=== PATIENT | female | born 1935 | race Two or more races ===

== ENCOUNTER → 2018-02-19 | Outpatient (CLI) | payer MEDICARE, OTHER ==
[2015-05-06 11:43] VITALS: BP 135/73
[~2018-02-19] MED LIST: ALPR0.5T6 PO; ASPI-482 PO; BIOT25006 PO; CHOL200074 PO; FLUO20CA8 PO; FURO20TA3 PO; INSU100I27 SQ; INSU100V5 IJ; METO25TA4 PO; NITR0.4T22 SL; NPH,100V SQ; TEMA30CA PO
--- NOTE | 2018-02-19 15:28 | KCIC ---
EXAM: Chest, 2 views. HISTORY: Pneumonia. COMPARISON: 05/04/2015 FINDINGS: 2 views of the chest are obtained. There is increased blunting of the left costophrenic angle due to left pleural thickening or a small pleural effusion. There is coarse diffuse increased interstitial opacity within the left lung which is also increased compared to the prior study. There is evidence of prior CABG. There is no pneumothorax. IMPRESSION: Increased small left pleural effusion or left pleural thickening and coarse diffuse increased left lung interstitial opacity due to interstitial infiltrate or chronic interstitial changes. Electronically signed by: Naina Patton MD (02/19/2018 3:23 PM) [place] [id number]
== END | disposition home or self-care (01) ==
LOC: KCIC 14:35
PROVIDERS: ATTEND Nurse Practitioner Family
DX: J18.9 Pneumonia, unspecified organism (principal); R91.8 Other nonspecific abnormal finding of lung field; Z85.3 Personal history of malignant neoplasm of breast
CPT/HCPCS: 71046

== ENCOUNTER 2018-06-30 10:54 | Emergency (ER) | payer MEDICARE, OTHER ==
[~2018-06-30] VITALS: Ht 157.5 cm; Wt 81.2 kg
[2018-06-30] MEDS ORDERED: IV NORMAL SALINE 500ML BAG 500 ML IV ONE (12:00)
[2018-06-30 12:05] LABS: AMPHETAMINE/METHAMPHETAMINE NEG (NEG); BARBITURATES NEG (NEG); BENZODIAZEPINES NEG (NEG); CANNABINOIDS NEG (NEG); COCAINE NEG (NEG); METHADONE NEG (NEG); OPIATES POS (NEG); PHENCYCLIDINE NEG (NEG)
[2018-06-30 12:12] LABS: BASO % 0 % (0-3); EOS # 0.1 x10^3/uL (0.0-0.7); EOS % 2 % (0-3); HEMATOCRIT 35.3 % (36.0-47.0); HEMOGLOBIN 11.7 g/dL (12.0-15.5); LYMPH # 2.5 x10^3/uL (1.0-4.8); LYMPH % 43 % (24-48); MEAN CORPUSCULAR HEMOGLOBIN 31 pg (25-35); MEAN CORPUSCULAR HGB CONC 33 g/dL (31-37); MEAN CORPUSCULAR VOLUME 93 fL (79-100); MONO # 0.4 x10^3/uL (0.0-1.1); MONO % 7 % (0-9); NEUT # 2.7 x10^3uL (1.8-7.7); NEUT % 48 % (31-73); PLATELET COUNT 191 x10^3/uL (140-400); RED BLOOD COUNT 3.82 x10^6/uL (3.50-5.40); RED CELL DISTRIBUTION WIDTH 13.3 % (11.5-14.5); WHITE BLOOD COUNT 5.7 x10^3/uL (4.0-11.0)
[2018-06-30 12:13] LABS: BILIRUBIN,URINE NEGATIVE (NEG); CLARITY,URINE CLEAR; COLOR,URINE YELLOW; NITRITE,URINE NEGATIVE (NEG); PROTEIN,URINE NEGATIVE (NEG-TRACE); UROBILINOGEN,URINE 0.2 mg/dL (0.2 mg/dL)
[2018-06-30] MEDS ORDERED: FAMOTIDINE 20 MG/2 ML VIAL IVP ONE (12:15)
[2018-06-30] MEDS ORDERED: ONDANSETRON PF 4 MG/2 ML VIAL. IV ONE (12:15)
[2018-06-30 12:22] LABS: CALCIUM 8.7 mg/dL (8.5-10.1); CREATININE 1.5 mg/dL (0.6-1.0); GFR 33.2; POTASSIUM 4.5 mmol/L (3.5-5.1)
[2018-06-30 12:24] LABS: BACTERIA,URINE MANY /HPF (0-FEW); HYALINE CASTS, URINE MODERATE /HPF; RBC,URINE 0 /HPF (0-2); SQUAMOUS EPITHELIAL CELL,UR FEW /LPF
[2018-06-30 12:29] LABS: ALBUMIN 3.2 g/dL (3.4-5.0); TOTAL BILIRUBIN 0.3 mg/dL (0.2-1.0); TOTAL PROTEIN 6.5 g/dL (6.4-8.2)
--- NOTE | 2018-06-30 13:20 | RAD ---
CT scan of the abdomen and pelvis without contrast 06/30/2018 CLINICAL HISTORY: Left upper quadrant abdominal pain. TECHNIQUE: Unenhanced, contiguous, 5 mm axial sections were obtained to the abdomen and pelvis. One or more of the following individualized dose reduction techniques were utilized for this study: 1. Automated exposure control. 2. Adjustment of the mA and/or kV according to patient size. 3. Use of iterative reconstruction technique. FINDINGS: Comparison study is dated 05/01/2015. Images through the lung bases demonstrate minimal dependent subsegmental atelectasis bilaterally. There is mild cardiomegaly. Pleural thickening is seen surrounding the left lower lobe. Scattered left pleural calcifications are noted. Small calcified granulomas are seen involving the right lower lobe. The liver, spleen, pancreas, adrenal glands and left kidney are within normal limits. A 2 cm oval-shaped low-attenuation structure is seen involving the medial aspect of the right kidney. This likely represents a cyst. Atherosclerotic calcification of the abdominal aorta and its branches is noted. The abdominal aorta tapers normally. Surgical clips are seen within the gallbladder fossa consistent with a cholecystectomy. No free fluid or free air is seen within the abdomen. Air and stool os seen throughout the colon. There is no evidence of bowel obstruction. Images through the pelvis demonstrate the urinary bladder distended with urine. Calcifications are seen within the pelvis consistent with phleboliths. No free fluid is seen. The patient appears to be post hysterectomy. No adnexal mass is seen. No free fluid is noted. Degenerative changes are seen involving the lower thoracic and throughout the lumbar spine and both hips. IMPRESSION: No acute abnormality is seen. Electronically signed by: Andrew Martin MD (06/30/2018 1:17 PM) [facility]
[2018-06-30] MEDS ORDERED: fentaNYL PF VIAL 100 MCG/2 ML VIAL IV ONE (14:45)
--- NOTE | 2018-06-30 14:50 | PHYS DOC ---
Past Medical History Past Medical History: Diabetes-Type II, Other Past Surgical History: Appendectomy, Coronary Bypass Surgery, Gastric Bypass, Hysterectomy, Tonsillectomy, Other Additional Past Surgical Histo: BILAT KNEE, BILAT CARPAL TUNNEL Alcohol Use: None Drug Use: None Adult General Chief Complaint Chief Complaint: ABDOMINAL PAIN and suicidal ideation [facility] HPI Patient is a 82 year old female who brought in by EMS because of abdominal pain and suicidal ideation. Patient complaining of chronic upper abdominal pain for years that getting worse for the last 2 days as a constant sharp pain with radiation to her back without nausea and vomiting, diarrhea and constipation, urinary symptoms, fever and chills. Patient rated her pain 10 over 10 and states her pain is so bad that she wants to kill herself and tried to cut her wrist last week and plans to cut her wrist again. Patient lost her son 2 years ago with suicidal attempt and was very depressed since then and talked about suicid e, according to her neighbor's frequently. Patient denies homicidal ideation or hallucination. Patient is very anxious during to starting IV line on exam and taking history. Review of Systems Review of Systems Constitutional: Denies fever or chills [] Eyes: Denies change in visual acuity, redness, or eye pain [] HENT: Denies nasal congestion or sore throat [] Respiratory: Denies cough or shortness of breath [] Cardiovascular: No additional information not addressed in HPI [] GI: Reports abdominal pain, denies nausea, vomiting, bloody stools or diarrhea [] : Denies dysuria or hematuria [] Musculoskeletal: Denies back pain or joint pain [] Integument: Denies rash or skin lesions [] Neurologic: Denies headache, focal weakness or sensory changes [] Endocrine: Denies polyuria or polydipsia [] All other systems were reviewed and found to be within normal limits, except as documented in this note. Current Medications Current Medications Current Medications Medications (Trade) Dose Ordered Sig/Serenity Start Time Stop Time Status Last Admin Dose Admin Famotidine (Pepcid Vial) 20 mg 1X ONCE 06/30/18 12:15 06/30/18 12:16 DC 06/30/18 11:55 20 MG Fentanyl Citrate (Fentanyl 2ml Vial) 50 mcg 1X ONCE 06/30/18 14:45 06/30/18 14:46 DC 06/30/18 14:55 50 MCG Metoclopramide HCl (Reglan Vial) 10 mg 1X ONCE 06/30/18 15:15 06/30/18 15:16 DC 06/30/18 14:55 10 MG Ondansetron HCl (Zofran) 4 mg 1X ONCE 06/30/18 12:15 06/30/18 12:16 DC 06/30/18 11:55 4 MG Sodium Chloride 500 ml @ 500 mls/hr 1X ONCE 06/30/18 12:00 06/30/18 12:59 DC 06/30/18 11:56 500 MLS/HR Allergies Allergies Allergies Coded Allergies Type Severity Reaction Last Updated Verified Sulfa (Sulfonamide Antibiotics) Allergy Intermediate 04/27/15 Yes Physical Exam Physical Exam Constitutional: Well nourished, mild distress, non-toxic appearance. [] HENT: Normocephalic, atraumatic, oropharynx moist. [] Eyes: PERRLA, EOMI, conjunctiva normal, no discharge. [] Neck: Normal range of motion, no tenderness, supple, no stridor. [] Cardiovascular:Heart rate regular rhythm, no murmur [] Lungs & Thorax: Bilateral breath sounds clear to auscultation [] Abdomen: Bowel sounds normal, soft, voluntary guarding without tenderness, no masses, no pulsatile masses. [] Skin: Warm, dry, no erythema, no rash. [] Back: No tenderness, no CVA tenderness. [] Extremities: No tenderness, no cyanosis, no clubbing, ROM intact, no edema. [] Neurologic: Alert and oriented X 3, normal motor function, normal sensory function, no focal deficits noted. [] Psychologic: Affect anxious, judgement normal, suicidal ideation. Current Patient Data Vital Signs Vital Signs Date Time Temp Pulse Resp B/P (MAP) Pulse Ox O2 Delivery O2 Flow Rate FiO2 06/30/18 16:08 93 22 158/72 (100) 96 Room Air 06/30/18 11:00 97.4 97.4 Lab Values Laboratory Tests Test 06/30/18 11:42 06/30/18 11:58 Urine Collection Type U cath Urine Color Yellow Urine Clarity Clear Urine pH 5.0 Urine Specific Preston >=1.030 Urine Protein Negative mg/dL (NEG-TRACE) Urine Glucose (UA) Negative mg/dL (NEG) Urine Ketones (Stick) Negative mg/dL (NEG) Urine Blood Negative (NEG) Urine Nitrite Negative (NEG) Urine Bilirubin Negative (NEG) Urine Urobilinogen Dipstick 0.2 mg/dL (0.2 mg/dL) Urine Leukocyte Esterase Small (NEG) Urine RBC 0 /HPF (0-2) Urine WBC 1-4 /HPF (0-4) Urine Squamous Epithelial Cells Few /LPF Urine Bacteria Many /HPF (0-FEW) Urine Hyaline Casts Moderate /HPF Urine Mucus Slight /LPF Urine Opiates Screen Pos (NEG) Urine Methadone Screen Neg (NEG) Urine Barbiturates Neg (NEG) Urine Phencyclidine Screen Neg (NEG) Urine Amphetamine/Methamphetamine Neg (NEG) Urine Benzodiazepines Screen Neg (NEG) Urine Cocaine Screen Neg (NEG) Urine Cannabinoids Screen Neg (NEG) Urine Ethyl Alcohol Neg (NEG) White Blood Count 5.7 x10^3/uL (4.0-11.0) Red Blood Count 3.82 x10^6/uL (3.50-5.40) Hemoglobin 11.7 g/dL (12.0-15.5) L Hematocrit 35.3 % (36.0-47.0) L Mean Corpuscular Volume 93 fL (79-100) Mean Corpuscular Hemoglobin 31 pg (25-35) Mean Corpuscular Hemoglobin Concent 33 g/dL (31-37) Red Cell Distribution Width 13.3 % (11.5-14.5) Platelet Count 191 x10^3/uL (140-400) Neutrophils (%) (Auto) 48 % (31-73) Lymphocytes (%) (Auto) 43 % (24-48) Monocytes (%) (Auto) 7 % (0-9) Eosinophils (%) (Auto) 2 % (0-3) Basophils (%) (Auto) 0 % (0-3) Neutrophils # (Auto) 2.7 x10^3uL (1.8-7.7) Lymphocytes # (Auto) 2.5 x10^3/uL (1.0-4.8) Monocytes # (Auto) 0.4 x10^3/uL (0.0-1.1) Eosinophils # (Auto) 0.1 x10^3/uL (0.0-0.7) Basophils # (Auto) 0.0 x10^3/uL (0.0-0.2) Prothrombin Time 13.0 SEC (11.7-14.0) Prothrombin Time INR 1.0 (0.8-1.1) Sodium Level 136 mmol/L (136-145) Potassium Level 4.5 mmol/L (3.5-5.1) Chloride Level 100 mmol/L (98-107) Carbon Dioxide Level 23 mmol/L (21-32) Anion Gap 13 (6-14) Blood Urea Nitrogen 36 mg/dL (7-20) H Creatinine 1.5 mg/dL (0.6-1.0) H Estimated GFR (Cockcroft-Gault) 33.2 BUN/Creatinine Ratio 24 (6-20) H Glucose Level 197 mg/dL (70-99) H Calcium Level 8.7 mg/dL (8.5-10.1) Total Bilirubin 0.3 mg/dL (0.2-1.0) Aspartate Amino Transferase (AST) 27 U/L (15-37) Alanine Aminotransferase (ALT) 20 U/L (14-59) Alkaline Phosphatase 32 U/L (46-116) L Creatine Kinase 80 U/L (26-192) Troponin I Quantitative 0.032 ng/mL (0.000-0.055) Total Protein 6.5 g/dL (6.4-8.2) Albumin 3.2 g/dL (3.4-5.0) L Albumin/Globulin Ratio 1.0 (1.0-1.7) Lipase 247 U/L (73-393) Ethyl Alcohol Level < 10 mg/dL (0-10) Laboratory Tests 06/30/18 11:58 Laboratory Tests 06/30/18 11:58 EKG EKG EKG interpreted by me. EKG at 1103 showed normal sinus rhythm at rate of 66, nonspecific T-wave abnormalities, no acute ST and T-wave abnormalities. Radiology/Procedures Radiology/Procedures [facility] [address] [place] [address] IMAGING REPORT Signed PATIENT: HKOI MUÑOZ ACCOUNT: [id number] : 1935 LOCATION: ER AGE: 82 SEX: F EXAM STATUS: REG ER ORD. PHYSICIAN: KIN ARNDT MD REASON: left upper abdominal pain PROCEDURE: CT ABDOMEN PELVIS WO CONTRAST CT scan of the abdomen and pelvis without contrast 06/30/2018 CLINICAL HISTORY: Left upper quadrant abdominal pain. TECHNIQUE: Unenhanced, contiguous, 5 mm axial sections were obtained to the abdomen and pelvis. One or more of the following individualized dose reduction techniques were utilized for this study: 1. Automated exposure control. 2. Adjustment of the mA and/or kV according to patient size. 3. Use of iterative reconstruction technique. FINDINGS: Comparison study is dated 05/01/2015. Images through the lung bases demonstrate minimal dependent subsegmental atelectasis bilaterally. There is mild cardiomegaly. Pleural thickening is seen surrounding the left lower lobe. Scattered left pleural calcifications are noted. Small calcified granulomas are seen involving the right lower lobe. The liver, spleen, pancreas, adrenal glands and left kidney are within normal limits. A 2 cm oval-shaped low-attenuation structure is seen involving the medial aspect of the right kidney. This likely represents a cyst. Atherosclerotic calcification of the abdominal aorta and its branches is noted. The abdominal aorta tapers normally. Surgical clips are seen within the gallbladder fossa consistent with a cholecystectomy. No free fluid or free air is seen within the abdomen. Air and stool os seen throughout the colon. There is no evidence of bowel obstruction. Images through the pelvis demonstrate the urinary bladder distended with urine. Calcifications are seen within the pelvis consistent with phleboliths. No free fluid is seen. The patient appears to be post hysterectomy. No adnexal mass is seen. No free fluid is noted. Degenerative changes are seen involving the lower thoracic and throughout the lumbar spine and both hips. IMPRESSION: No acute abnormality is seen. Electronically signed by: Andrew Martin MD (06/30/2018 1:17 PM) [facility] DICTATED and SIGNED BY: ANDREW MARTIN MD DATE: 06/30/18 7233 Course & Med Decision Making Course & Med Decision Making Pertinent Labs and Imaging studies reviewed. (See chart for details) Evaluation of patient in ER showed 82-year-old male patient with complaining of chronic abdominal pain that getting worse for the last 3 days and suicidal ideation because of the pain. Patient had history of suicidal attempt and family history of suicidal attempt and depression without taking any medication. Labs showed chronic renal insufficiency and anemia and blood sugar of 197. CT of abdomen and pelvis was unremarkable. Patient treated with IV fluid, Zofran, Pepcid, fentanyl and Reglan. Patient was evaluated by PAT team and had criteria for inpatient treatment for mental condition. At 1620: Patient felt better after treatment with Reglan and fentanyl and was able to fall asleep without problem. Patient had criteria for inpatient treatment and was accepted to [facility] behavioral unit at [facility] by at 1615. Dragon Disclaimer Dragon Disclaimer This electronic medical record was generated, in whole or in part, using a voice recognition dictation system. Departure Departure Impression: Primary Impression: Suicidal ideation Additional Impressions: Chronic abdominal pain Anxiety Renal insufficiency Anemia Disposition: 65 XFER TO PSYCH HOSP/UNIT ( septated admission to [facility] 1615) Condition: IMPROVED Referrals: SHELLEY BAUTISTA MD (PCP) Problem Qualifiers Additional Impressions: Anemia Anemia type: unspecified type Qualified Codes: D64.9 - Anemia, unspecified KIN ARNDT MD June 30, 2018 14:50
[2018-06-30] MEDS ORDERED: METOCLOPRAMIDE HCL 10 MG/2 ML VIAL. IV ONE (15:15)
[2018-06-30 17:01] VITALS: BP 150/63
--- NOTE | 2018-07-02 08:38 | EKG ---
[facility] [address] [place] [address] Test Date: 2018-06-30 Test Time: 11:01:52 Pat Name: KHOI MUÑOZ Department: Room: Gender: F [employer]itat Management Coordinator: : 1935 Requested By: KIN ARNDT Order Number: [id number] Reading MD: Arsh Arevalo MD Measurements Intervals Gilbert Rate: 71 P: 56 LA: 134 QRS: 48 QRSD: 84 T: 90 QT: 388 QTc: 426 Interpretive Statements SINUS RHYTHM ATRIAL PREMATURE COMPLEX(ES) NON-SPECIFIC ST/T CHANGES Electronically Signed On 07-26-2018 14:47:42 CDT by Arsh Arevalo MD
--- NOTE | 2018-07-02 08:39 | EKG ---
[facility] [address] [place] [address] Test Date: 2018-06-30 Test Time: 11:03:57 Pat Name: KHOI MUÑOZ Department: Room: Gender: F Channeler: : 1935 Requested By: KIN ARNDT Order Number: [id number] Reading MD: Arsh Arevalo MD Measurements Intervals Gay Rate: 66 P: 52 CT: 136 QRS: 48 QRSD: 84 T: 87 QT: 402 QTc: 423 Interpretive Statements SINUS RHYTHM Electronically Signed On 07-26-2018 14:47:48 CDT by Arsh Arevalo MD
== END 2018-06-30 17:40 ==
LOC: ER 10:54
DX: R45.851 Suicidal ideations (principal); G89.29 Other chronic pain; R10.12 Left upper quadrant pain; F41.9 Anxiety disorder, unspecified; D64.9 Anemia, unspecified; E11.22 Type 2 diabetes mellitus with diabetic chronic kidney disease; N18.9 Chronic kidney disease, unspecified; Z90.89 Acquired absence of other organs; Z98.84 Bariatric surgery status; Z95.1 Presence of aortocoronary bypass graft; Z90.710 Acquired absence of both cervix and uterus; Z88.2 Allergy status to sulfonamides
CPT/HCPCS: 36415; 74176; 80053; 80307; 81001; 82550; 83690; 84484; 85025; 85610; 87086; 93005; 96361; 96374; 96375; 99285; G0480; J2405; J2765; J3010; J3490; J7040; P9612; 87186